=== PATIENT | male | born 1980 | race African-American/Black ===

== ENCOUNTER 2018-08-06 08:12 | Emergency (ER) | payer OTHER ==
[~2018-08-06] VITALS: Ht 170.2 cm; Wt 72.6 kg
[~2018-08-06 08:12] MED LIST: ATIVAN1 MG PO; CARAFATE 1 GM TA1 G1 PO; CARAFATE 11 GM/10 M1 PO; NOHOMEMEDICATIONS; NORCO 5-325 TA1 EACH PO; PHENERGAN 25 MG25 M1 PO; PRILOSEC 20 MG20 MG PO; PROTONIX40 MG PO; REGLAN 10 MG TA10 M1 PO; ZANTAC 150MG T150 M1 PO; ZOFRAN 4 MG ORAL4 MG PO; ZOFRAN ODT4 MG PO; ZOFRAN4 MG PO
[2018-08-06 08:34] LABS: ABSOLUTE NEUTROPHILS 9.9 thou/uL (1.4-8.2); BASOPHILS 0.2 % (0.0-2.0); HEMATOCRIT 45.1 % (42.0-52.0); HEMOGLOBIN 15.3 gm/dL (14.0-18.0); LYMPHOCYTES 5.2 % (24.0-44.0); MCH 28.7 pg (26.0-34.0); MCHC 33.9 g/dL (28.0-37.0); MCV 84.7 fL (80.0-100.0); MONOCYTES 4.8 % (1.0-8.0); PLATELET COUNT 198 thou/uL (150-400); POLYS 89.8 % (36.0-66.0); RBC 5.33 mil/uL (4.50-6.00); RDW 13.9 % (10.5-14.5)
[2018-08-06 08:45] LABS: CALCIUM 10.1 mg/dL (8.5-10.1); CREATININE 1.3 mg/dL (0.7-1.3); POTASSIUM 3.4 mmol/L (3.5-5.1)
[2018-08-06 08:51] LABS: ALBUMIN 4.2 g/dL (3.4-5.0); TOTAL BILIRUBIN 1.3 mg/dL (<0.1-1.0); TOTAL PROTEIN 8.7 g/dL (6.4-8.2)
[2018-08-06] MEDS ORDERED: ZOFRAN ODT8 MG PO (09:38)
[2018-08-06] MEDS ORDERED: PROMS25 WY RECTAL (09:38)
[2018-08-06 10:40] VITALS: BP 158/89
== END 2018-08-06 10:54 | disposition home or self-care (01) ==
LOC: ER 08:12
PROVIDERS: Emergency Medicine
DX: R11.2 Nausea with vomiting, unspecified (principal); F12.99 Cannabis use, unspecified with unspecified cannabis-induced disorder; F17.210 Nicotine dependence, cigarettes, uncomplicated

== ENCOUNTER 2018-08-07 17:16 | Inpatient (IN) | payer OTHER ==
[~2018-08-07] VITALS: Ht 170.2 cm; Wt 158.8 kg
--- NOTE | ~2018-08-07 | EKG ---
[address] [address] ELECTROCARDIOGRAM REPORT Name: SELINA DICKINSONRUBEN Room #: 424-P ADM IN M.R.#: [id number] Admission: 08/07/18 Attend Phys: Ronnie Jauregui MD Discharge: Date of : 82 Report #: [id number] THIS REPORT FOR: //name// [facility] ED Test Date: 2018-08-07 Test Time: 17:44:41 Pat Name: HAILE DICKINSON Department: Room: [facility] Gender: M [facility] Administrator: : 1980 Requested By: Sarita Strong Order Number: [id number] MD: Félix Rascon Measurements Intervals [place] Rate: 74 P: 63 [place]: 143 QRS: 67 QRSD: 103 T: 62 QT: 393 QTc: 436 Interpretive Statements Sinus arrhythmia ST elev, probable normal early repol pattern Compared to ECG 06/20/2018 18:23:00 No significant change was found Electronically Signed On 08-08-2018 8:14:11 CDT by Félix Rascon [email or web address] <ELECTRONICALLY SIGNED> By: Félix Rascon MD, [facility] 08/08/18 0814 43 43 Félix Rascon MD, [facility] /EPI
--- NOTE | ~2018-08-07 | 2DMMODE ---
[facility] [address] [place] [address] 2 D/M-MODE ECHOCARDIOGRAM Name: SELINA DICKINSONRUBEN Room #: 424-P ADM IN .R.#: [id number] Admission: 08/07/18 Attend Phys: Ronnie Jauregui MD Discharge: Date of : 82 Date of Service: 08/08/18 1420 Report #: [id number] THIS REPORT FOR: //name// APPROVED REPORT Study performed: 08/08/2018 13:17:58 EXAM: Comprehensive 2D, Doppler, and color-flow Echocardiogram Patient Location: Echo lab Room #: [facility] Status: routine BSA: 1.84 HR: 76 bpm BP: 156/90 mmHg Rhythm: NSR Other Information Study Quality: Good Indications Chest Pain Hypertension/HDD 2D Dimensions RVDd: 35.60 mm IVSd: 11.79 (7-11mm) LVOT Diam: 21.00 (18-24mm) LVDd: 46.31 mm PWd: 12.06 (7-11mm) Ascending Ao: 26.36 (22-36mm) LVDs: 32.16 (25-40mm) Aortic Root: 29.30 mm IVC: 16.00 mm Volumes Left Atrial Volume (Systole) Single Plane 4CH: 52.49 mL Single Plane 2CH: 23.05 mL LA ESV Index: 23.00 mL/m2 Aortic Valve AoV Peak Landen.: 1.39 m/s AO Peak Gr.: 7.69 mmHg LVOT Max P.02 mmHg LVOT Max V: 1.12 m/s [place] Vmax: 2.80 cm2 Mitral Valve E/A Ratio: 1.5 MV Decel. Time: 295.67 ms [facility] [place] [address] [place] [address] 2 D/M-MODE ECHOCARDIOGRAM Name: ALOKSELINARUBEN Room #: [facility]#: [id number] Admission: 08/07/18 Attend Phys: Ronnie Jauregui MD Discharge: Date of : 82 Date of Service: 08/08/18 1420 Report #: [id number] MV E Max Landen.: 0.69 m/s MV A Landen.: 0.45 m/s MV PHT: 85.75 ms IVRT: 87.66 ms Pulmonary Valve PV Peak Landen.: 1.30 m/s PV Peak Gr.: 6.80 mmHg Pulmonary Vein P Vein S: 0.75 m/s P Vein A: 0.23 m/s P Vein D: 0.48 m/s P Vein A Dur.: 87.7 msec P Vein S/D Ratio: 1.56 Tricuspid Valve TR Peak Landen.: 2.48 m/s TR Peak Gr.: 24.55 mmHg PA Pressure: 29.00 mmHg Left Ventricle The left ventricle is normal size. There is normal LV segmental wall motion. There is normal left ventricular wall thickness. Left ventricular systolic function is normal. The left ventricular ejection fraction is within the normal range. LVEF is 55-60%. The left ventricular diastolic function is normal. Right Ventricle The right ventricle is normal size. The right ventricular systolic function is normal. Atria The left atrium size is normal. The right atrium size is normal. Aortic Valve The aortic valve is normal in structure. No aortic regurgitation is present. There is no aortic valvular stenosis. Mitral Valve The mitral valve is normal in structure. There is no mitral valve regurgitation noted. No evidence of mitral valve stenosis. Tricuspid Valve The tricuspid valve is normal in structure. There is trace tricuspid regurgitation. Estimated PAP 29 mmHg. There is no pulmonary hypertension. [address] [address] 2 D/M-MODE ECHOCARDIOGRAM Name: AMARA DICKINSONGus Room #: 424-P [facility] IN .R.#: [id number] Admission: 08/07/18 Attend Phys: Ronnie Jauregui MD Discharge: Date of : 82 Date of Service: 08/08/18 1420 Report #: [id number] Pulmonic Valve The pulmonary valve is normal in structure. Trace pulmonic regurgitation. Great Vessels The aortic root is normal in size. IVC is normal in size and collapses >50% with inspiration. Pericardium There is no pericardial effusion. <Conclusion> The left ventricle is normal size. Left ventricular systolic function is normal. The left ventricular diastolic function is normal. The right ventricle is normal size. The left atrium size is normal. The aortic valve is normal in structure. There is no mitral valve regurgitation noted. There is trace tricuspid regurgitation. Estimated PAP 29 mmHg. <ELECTRONICALLY SIGNED> By: Nuno Chang MD 08/08/18 1420 1420 142 Nuno Chang MD /INF
--- NOTE | ~2018-08-07 | PATH ---
[facility] [address] [address] PATHOLOGY RPT PROCEDURE Name: RENETTA DICKINSON Room #: 424-P DIS IN M.R.#: [id number] Admission: 08/07/18 Date of : 82 Discharge: 08/11/18 Report #: [id number] Path Case #: [id number] [facility] Accession Number: [id number] . 01 Material submitted: . PART A: BX DUODENUM R/O SPRUE PART B: GASTRIC BX R/O H. PYLORI PART C: BX ESOPHAGITIS R/O CMV,HERPES,JOSE ALFREDO . 01 Clinical history: . Pre-OP DX: Nausea, vomiting, abdominal pain Post-OP DX: Esophagitis . 02 Diagnosis: A. Duodenum "biopsy duodenum": - No obvious diagnostic changes. - There is no evidence of acute cryptitis, granulomas, adenomatous change, sprue-like changes or malignancy. . B. Gastric "gastric biopsy": - Mild chronic reactive gastropathy. - The immunoperoxidase stains for Helicobacter pylori is negative. . C. Esophagus "biopsy esophagitis": - Acute esophageal ulcer with necrotic acute inflammatory exudate. - Squamous and glandular mucosa are not present for evaluation. - No obvious goblet cell metaplasia, dysplasia or malignancy. - As requested CMV, herpes and jose alfredo will be don an additional report will follow. (SHA:[facility] 08/12/2018) QTP/08/12/2018 . 02 Electronically signed: . Nathaniel Bhatt MD, Pathologist NPI- [id number] . 01 Gross description: . A. Received in formalin labeled "Renetta Dickinson, BX duodenum, rule out sprue," are 2 segments of rios soft tissue measuring 0.9 x 0.3 x 0.3 cm in aggregate dimensions and ranging from 0.4 to 0.5 cm in maximum dimension. The specimen is submitted entirely in cassette A1. . B. Received in formalin labeled "Renetta Dickinson, BX gastric, rule out H. pylori," are 3 segments of rios soft tissue measuring 1.2 x 0.8 x 0.2 cm in aggregate dimensions and ranging from 0.4 to 0.6 cm in maximum dimension. The specimen is submitted entirely in cassette B1. . [address] [address] PATHOLOGY RPT PROCEDURE Name: RENETTA DICKINSON Room #: 424-P DIS IN M.R.#: [id number] Admission: 08/07/18 Date of : 82 Discharge: 08/11/18 Report #: [id number] Path Case #: [id number] C. Received in formalin labeled "Jena Dickinsonaruna, BX esophagitis," are 3 segments of rios soft tissue measuring 0.6 x 0.4 x 0.1 cm in aggregate dimensions and ranging from 0.2 to 0.3 cm in maximum dimension. The specimen is submitted entirely in cassette C1. (TSD; 08/09/2018) TOB/TOB . 02 Pathologist provided ICD-10: K31.9, K20.9 . 02 CPT . 768129, 936291, 377197, L26367 Specimen Comment: A courtesy copy of this report has been sent to Specimen Comment: [phone], . Specimen Comment: Report sent to / DR LUZ Performed at: [address], [place] [id number] MD Shay Hardwick MD Phone: [phone] Performed at: [address] [id number] MD Sharyn Ball MD Phone: [phone]
--- NOTE | ~2018-08-07 | P ---
[facility] [place] [address] [place] [address] PROCEDURE REPORT Name: HAILE DICKINSON Room #: 424-P [facility] IN M.R.#: [id number] Admission: 08/07/18 Attend Phys: Ronnie Jauregui MD Discharge: Date of : 82 Report #: [id number] THIS REPORT FOR: //name// CC: CAM physician/PCP Ronnie Jauregui MD DATE OF SERVICE: 08/09/2018 PROCEDURE PERFORMED: Upper endoscopy with biopsies. HISTORY OF PRESENT ILLNESS: The patient is a 38-year-old male who was admitted for recurrent nausea, vomiting and abdominal pain. He does complain of belching, unsure if he has had a previous upper endoscopy in the past. Abdominal ultrasound shows gallbladder sludge, but no evidence of cholelithiasis, no ductal dilation. He denies any NSAID use. He denies any dysphagia or odynophagia. DESCRIPTION OF PROCEDURE: The risks and benefits of the procedure were explained to the patient, those risks including but not limited to bleeding, perforation and the risk of sedation. He understood these risks and gave informed consent. Sedation was given using propofol per anesthesia. Next, using a standard Olympus upper endoscope, the scope was placed in the patient's mouth and advanced under direct vision through the esophagus, stomach and into the second portion of the duodenum. The upper esophagus was normal. In the mid and distal esophagus, severe grade D ulcerative esophagitis was noted. Biopsies were obtained to rule out CMV and herpes as well as Nicolasa. Upon entering the stomach, a large amount of fluid was noted. This may be suggestive for gastroparesis. This was aspirated away. There was a mild gastritis, several erosions were also noted within the gastric antrum. Biopsies obtained to rule out H. pylori. The pylorus was normal and patent. The duodenal bulb, first and second portion were all normal. Biopsies were obtained to rule out the possibility of celiac sprue. The scope was then withdrawn and the procedure terminated. The patient tolerated the procedure well. IMPRESSION: 1. Severe grade D erosive esophagitis as described above. 2. Liquid within the stomach suggesting possible gastroparesis. 3. Gastritis with gastric erosions. RECOMMENDATIONS: 1. Await biopsy results. 2. Would recommend discontinuing Pepcid. Starting Protonix drip and adding liquid Carafate at this time. May need to consider promotility agent such as Reglan and gastric emptying study in the near future. [address] [address] PROCEDURE REPORT Name: HAILE DICKINSON Room #: 424-P [facility] IN ..#: [id number] Admission: 08/07/18 Attend Phys: Ronnie Jauregui MD Discharge: Date of : 82 Report #: [id number] Thank you for allowing me to participate in his care. By: 1049 [id number] Curtis Mullen MD /nt
--- NOTE | ~2018-08-07 | EKG ---
[address] [address] ELECTROCARDIOGRAM REPORT Name: SELINA DICKINSONRUBEN Room #: 424-P ADM IN M.R.#: [id number] Admission: 08/07/18 Attend Phys: Ronnie Jauregui MD Discharge: Date of : 82 Report #: [id number] THIS REPORT FOR: //name// [facility] Test Date: 2018-08-08 Test Time: 11:42:34 Pat Name: HAILE DICKINSON Department: Room: 424 P Gender: M Veneer Taper: Mahesh PEGUERO : 1980 Requested By: Ronnie Jauregui Order Number: [id number] MD: Félix Rascon Measurements Intervals [place] Rate: 83 P: 66 [place]: 141 QRS: 48 QRSD: 103 T: 53 QT: 380 QTc: 447 Interpretive Statements Sinus rhythm No significant abnormality Compared to ECG 08/07/2018 17:44:41 Sinus arrhythmia no longer present Electronically Signed On 08-09-2018 8:20:33 CDT by Félix Rascon [email or web address] <ELECTRONICALLY SIGNED> By: Félix Rascon MD, [facility] 08/09/18 0820 1142 114 Félix Rascon MD, FAC /EPI
[2018-08-07 17:16] VITALS: BP 156/106
[~2018-08-07 17:16] MED LIST changes: +PROMS25 WY RECTAL; +ZOFRAN ODT8 MG PO
[2018-08-07 18:13] LABS: ABSOLUTE NEUTROPHILS 11.5 thou/uL (1.4-8.2); BASOPHILS 0.2 % (0.0-2.0); EOSINOPHILS 0.1 % (0.0-3.0); HEMATOCRIT 46.4 % (42.0-52.0); HEMOGLOBIN 15.6 gm/dL (14.0-18.0); LYMPHOCYTES 7.6 % (24.0-44.0); MCH 28.5 pg (26.0-34.0); MCHC 33.7 g/dL (28.0-37.0); MCV 84.6 fL (80.0-100.0); MONOCYTES 9.1 % (1.0-8.0); PLATELET COUNT 204 thou/uL (150-400); RBC 5.48 mil/uL (4.50-6.00); WBC 13.8 thou/uL (4.0-11.0)
[2018-08-07 18:23] LABS: CALCIUM 9.7 mg/dL (8.5-10.1); CREATININE 1.1 mg/dL (0.7-1.3); POTASSIUM 3.4 mmol/L (3.5-5.1)
[2018-08-07 18:25] LABS: APTT 26.6 Seconds (24.5-32.8)
[2018-08-07 18:29] LABS: ALBUMIN 4.1 g/dL (3.4-5.0); TOTAL BILIRUBIN 0.8 mg/dL (<0.1-1.0); TOTAL PROTEIN 8.9 g/dL (6.4-8.2)
[2018-08-07 20:53] VITALS: BP 145/93
[2018-08-07 21:04] VITALS: BP 155/93
[2018-08-07 21:15] VITALS: BP 162/90
[2018-08-08 01:26] LABS: URINE BILIRUBIN NEGATIVE (Negative); URINE BLOOD NEGATIVE (Negative); URINE CLARITY CLEAR; URINE COLOR YELLOW; URINE GLUCOSE-RANDOM* NEGATIVE (Negative); URINE KETONES 1+ (Negative); URINE LEUKOCYTES NEGATIVE (Negative); URINE NITRITE NEGATIVE (Negative); URINE PROTEIN (DIPSTICK) NEGATIVE (Negative); URINE UROBILINOGEN 0.2 E.U./dl (0.2-1.0)
[2018-08-08 02:01] LABS: AMP/METHAMP Negative (Negative); BARBITURATES Negative (Negative); BENZODIAZEPINES Negative (Negative); COCAINE Negative (Negative); METHADONE Negative (Negative); OPIATES Negative (Negative); PCP Negative (Negative)
[2018-08-08 03:35] VITALS: BP 160/95
[2018-08-08 06:08] LABS: HEMATOCRIT 45.7 % (42.0-52.0); HEMOGLOBIN 14.8 gm/dL (14.0-18.0); MCH 27.8 pg (26.0-34.0); MCHC 32.3 g/dL (28.0-37.0); MCV 85.9 fL (80.0-100.0); RBC 5.32 mil/uL (4.50-6.00); WBC 13.3 thou/uL (4.0-11.0)
[2018-08-08 06:10] VITALS: BP 164/92
[2018-08-08 06:21] LABS: CALCIUM 8.6 mg/dL (8.5-10.1); MAGNESIUM 2.4 mg/dL (1.8-2.4); POTASSIUM 3.7 mmol/L (3.5-5.1)
[2018-08-08 07:30] VITALS: BP 156/90
[2018-08-08 10:57] LABS: LIPASE 60 U/L (73-393)
[2018-08-08 11:04] LABS: TROPONIN-I <0.06 ng/mL (<0.06)
[2018-08-08 11:06] VITALS: BP 156/98
[2018-08-08 11:08] LABS: AMYLASE 31 U/L (25-115)
[2018-08-08 16:05] VITALS: BP 150/102
[2018-08-08 19:20] VITALS: BP 159/93
[2018-08-09 04:24] VITALS: BP 161/100
[2018-08-09 06:04] LABS: HEMATOCRIT 43.5 % (42.0-52.0); HEMOGLOBIN 14.7 gm/dL (14.0-18.0); MCH 28.7 pg (26.0-34.0); MCHC 33.9 g/dL (28.0-37.0); MCV 84.7 fL (80.0-100.0); PLATELET COUNT 178 thou/uL (150-400); RBC 5.13 mil/uL (4.50-6.00); RDW 13.5 % (10.5-14.5); WBC 11.3 thou/uL (4.0-11.0)
[2018-08-09 06:14] LABS: CALCIUM 8.7 mg/dL (8.5-10.1); POTASSIUM 3.6 mmol/L (3.5-5.1)
[2018-08-09 08:00] VITALS: BP 157/94
[2018-08-09 08:35] LABS: ABSOLUTE NEUTROPHILS 7.7 thou/uL (1.4-8.2)
[2018-08-09 20:09] VITALS: BP 143/90
[2018-08-10 05:53] LABS: HEMATOCRIT 43.6 % (42.0-52.0); HEMOGLOBIN 14.9 gm/dL (14.0-18.0); MCHC 34.1 g/dL (28.0-37.0); PLATELET COUNT 193 thou/uL (150-400); RBC 5.12 mil/uL (4.50-6.00); RDW 13.9 % (10.5-14.5); WBC 7.2 thou/uL (4.0-11.0)
[2018-08-10 05:59] LABS: CALCIUM 9.3 mg/dL (8.5-10.1); CREATININE 0.9 mg/dL (0.7-1.3); POTASSIUM 3.9 mmol/L (3.5-5.1)
[2018-08-10 09:03] LABS: ABSOLUTE NEUTROPHILS 3.9 thou/uL (1.4-8.2)
[2018-08-10 09:13] VITALS: BP 129/89
[2018-08-10 17:43] VITALS: BP 168/76
[2018-08-10 20:00] VITALS: BP 167/98
[2018-08-10 22:00] VITALS: BP 137/81
[2018-08-11 03:05] VITALS: BP 138/89
[2018-08-11 06:50] LABS: HEMATOCRIT 44.8 % (42.0-52.0); HEMOGLOBIN 15.1 gm/dL (14.0-18.0); MCH 28.6 pg (26.0-34.0); MCHC 33.7 g/dL (28.0-37.0); MCV 84.9 fL (80.0-100.0); PLATELET COUNT 206 thou/uL (150-400); RBC 5.28 mil/uL (4.50-6.00); RDW 13.6 % (10.5-14.5); WBC 7.8 thou/uL (4.0-11.0)
[2018-08-11 06:58] LABS: CALCIUM 9.3 mg/dL (8.5-10.1); CREATININE 1.1 mg/dL (0.7-1.3); POTASSIUM 3.5 mmol/L (3.5-5.1)
[2018-08-11 08:56] LABS: ABSOLUTE NEUTROPHILS 4.8 thou/uL (1.4-8.2)
[2018-08-11 08:57] LABS: ANISOCYTOSIS SLIGHT
[2018-08-11] MEDS ORDERED: MELATONIN5 M1 PO (14:35)
[2018-08-11] MEDS ORDERED: PROTONIX40 M1 PO (14:35)
[2018-08-11] MEDS ORDERED: REGLAN 10 MG TA10 MG PO (14:35)
[2018-08-11 15:19] VITALS: BP 138/89
[2018-08-11] MEDS ORDERED: NICOTINE TRANSD21 M1 TRANSDERM (15:48)
== END 2018-08-11 15:57 | disposition home or self-care (01) | DRG 382 ==
LOC: ER 17:16 → 4E 20:15 → EROBS 20:15 → 4E 21:04
PROVIDERS: Hospitalist; Nurse Practitioner Acute Care; Physician Assistant
PROC: 0DB98ZX Excision of Duodenum, Via Natural or Artificial Opening Endoscopic, Diagnostic (ICD-10-PCS; principal; 2018-08-09)
PROC: 0DB58ZX Excision of Esophagus, Via Natural or Artificial Opening Endoscopic, Diagnostic (ICD-10-PCS; principal; 2018-08-09)
PROC: 0DB68ZX Excision of Stomach, Via Natural or Artificial Opening Endoscopic, Diagnostic (ICD-10-PCS; principal; 2018-08-09)
DX: K22.10 Ulcer of esophagus without bleeding (principal); K31.89 Other diseases of stomach and duodenum; K29.00 Acute gastritis without bleeding; F12.90 Cannabis use, unspecified, uncomplicated; E86.0 Dehydration; D72.829 Elevated white blood cell count, unspecified; F17.210 Nicotine dependence, cigarettes, uncomplicated; R11.10 Vomiting, unspecified; E87.6 Hypokalemia; K59.00 Constipation, unspecified; Z79.899 Other long term (current) drug therapy
CPT/HCPCS: 10084; 62110; 62900; 70005

== ENCOUNTER 2018-08-22 23:50 | Emergency (ER) | payer OTHER ==
[~2018-08-22] VITALS: Ht 172.7 cm; Wt 74.8 kg
--- NOTE | ~2018-08-22 | EKG ---
[address] [place] [address] ELECTROCARDIOGRAM REPORT Name: DICKINSONHAILE Room #: DEP Inocencio#: [id number] Admission: 08/22/18 Attend Phys: Discharge: 08/23/18 Date of : 82 Report #: [id number] THIS REPORT FOR: //name// [facility] ED Test Date: 2018-08-23 Test Time: 01:34:53 Pat Name: HAILE DICKINSON Department: Room: Gender: Car Checker: [place] [address] : 1980 Requested By: Nadia Hernandez Order Number: [id number] MD: Félix Rascon Measurements Intervals [place] Rate: 72 P: 5 [place]: 154 QRS: 66 QRSD: 107 T: 38 QT: 399 QTc: 437 Interpretive Statements Sinus rhythm No significant abnormality Compared to ECG 08/08/2018 11:42:34 No significant changes Electronically Signed On 08-23-2018 8:59:47 CDT by Félix Rascon [email or web address] <ELECTRONICALLY SIGNED> By: Félix Rascon MD, [facility] 08/23/18 0859 0134 0134 Félix Rascon MD, FACC /EPI
[~2018-08-22 23:50] MED LIST changes: +MELATONIN5 M1 PO; +NICOTINE TRANSD21 M1 TRANSDERM; +PROTONIX40 M1 PO; +REGLAN 10 MG TA10 MG PO
[2018-08-23 01:17] LABS: ABSOLUTE NEUTROPHILS 10.8 thou/uL (1.4-8.2); BASOPHILS 0.6 % (0.0-2.0); EOSINOPHILS 0.1 % (0.0-3.0); HEMATOCRIT 43.8 % (42.0-52.0); HEMOGLOBIN 14.5 gm/dL (14.0-18.0); MCH 28.2 pg (26.0-34.0); MCV 85.3 fL (80.0-100.0); PLATELET COUNT 269 thou/uL (150-400); POLYS 87.3 % (36.0-66.0); RBC 5.14 mil/uL (4.50-6.00); RDW 14.4 % (10.5-14.5); WBC 12.4 thou/uL (4.0-11.0)
[2018-08-23 01:32] LABS: CREATININE 1.1 mg/dL (0.7-1.3); POTASSIUM 3.6 mmol/L (3.5-5.1)
[2018-08-23 01:38] LABS: ALBUMIN 4.1 g/dL (3.4-5.0); DIRECT BILIRUBIN 0.1 mg/dL (<0.1-0.3); TOTAL BILIRUBIN 0.5 mg/dL (<0.1-1.0)
[2018-08-23 02:59] LABS: URINE BILIRUBIN NEGATIVE (Negative); URINE BLOOD NEGATIVE (Negative); URINE CLARITY CLEAR; URINE COLOR YELLOW; URINE GLUCOSE-RANDOM* NEGATIVE (Negative); URINE KETONES 1+ (Negative); URINE LEUKOCYTES-REFLEX NEGATIVE (Negative); URINE NITRITE-REFLEX NEGATIVE (Negative); URINE PROTEIN (DIPSTICK) NEGATIVE (Negative); URINE SPECIFIC GRAVITY 1.015 (1.005-1.035); URINE UROBILINOGEN 0.2 E.U./dl (0.2-1.0)
[2018-08-23 03:07] LABS: AMP/METHAMP Negative (Negative); BARBITURATES Negative (Negative); BENZODIAZEPINES Negative (Negative); COCAINE Negative (Negative); METHADONE Negative (Negative); OPIATES Negative (Negative); PCP Negative (Negative)
[2018-08-23 03:08] LABS: SSA (PROTEIN CONFIRMATORY) NEGATIVE (Negative)
[2018-08-23 03:19] VITALS: BP 152/86
== END 2018-08-23 03:20 | disposition home or self-care (01) ==
LOC: ER 23:50
PROVIDERS: Emergency Medicine
DX: R11.10 Vomiting, unspecified (principal); F12.10 Cannabis abuse, uncomplicated; K20.9 Esophagitis, unspecified; F17.210 Nicotine dependence, cigarettes, uncomplicated

== ENCOUNTER 2018-10-08 14:46 | Emergency (ER) | payer OTHER ==
[~2018-10-08] VITALS: Ht 170.2 cm; Wt 72.6 kg
[2018-10-08 16:09] LABS: ABSOLUTE NEUTROPHILS 7.6 thou/uL (1.4-8.2); BASOPHILS 0.6 % (0.0-2.0); EOSINOPHILS 0.1 % (0.0-3.0); HEMATOCRIT 46.8 % (42.0-52.0); HEMOGLOBIN 15.7 gm/dL (14.0-18.0); LYMPHOCYTES 7.9 % (24.0-44.0); MCH 28.7 pg (26.0-34.0); MCHC 33.5 g/dL (28.0-37.0); MCV 85.7 fL (80.0-100.0); MONOCYTES 3.9 % (1.0-8.0); PLATELET COUNT 227 thou/uL (150-400); POLYS 87.5 % (36.0-66.0); RBC 5.46 mil/uL (4.50-6.00); RDW 14.2 % (10.5-14.5); WBC 8.6 thou/uL (4.0-11.0)
[2018-10-08 16:17] LABS: CALCIUM 10.1 mg/dL (8.5-10.1); CREATININE 1.3 mg/dL (0.7-1.3); POTASSIUM 4.4 mmol/L (3.5-5.1)
[2018-10-08 16:23] LABS: ALBUMIN 4.4 g/dL (3.4-5.0); TOTAL BILIRUBIN 0.9 mg/dL (<0.1-1.0); TOTAL PROTEIN 8.9 g/dL (6.4-8.2)
[2018-10-08] MEDS ORDERED: PROMS25 WY RECTAL (17:52)
[2018-10-08 20:38] VITALS: BP 137/95
== END 2018-10-08 20:39 | disposition home or self-care (01) ==
LOC: ER 14:46
PROVIDERS: Physician Assistant
DX: G43.A0 Cyclical vomiting, in migraine, not intractable (principal); R10.9 Unspecified abdominal pain; F12.10 Cannabis abuse, uncomplicated

== ENCOUNTER 2018-10-11 13:20 | Emergency (ER) | payer OTHER ==
[~2018-10-11] VITALS: Ht 167.6 cm; Wt 70.3 kg
[2018-10-11 16:22] LABS: HEMATOCRIT 48.7 % (42.0-52.0); HEMOGLOBIN 16.5 gm/dL (14.0-18.0); MCH 28.7 pg (26.0-34.0); MCHC 33.9 g/dL (28.0-37.0); MCV 84.6 fL (80.0-100.0); RBC 5.76 mil/uL (4.50-6.00); RDW 14.2 % (10.5-14.5); WBC 12.2 thou/uL (4.0-11.0)
[2018-10-11 16:29] LABS: CALCIUM 9.2 mg/dL (8.5-10.1); CREATININE 0.9 mg/dL (0.7-1.3); POTASSIUM 3.5 mmol/L (3.5-5.1)
[2018-10-11 16:35] LABS: ALBUMIN 3.7 g/dL (3.4-5.0)
[2018-10-11 16:45] VITALS: BP 159/97
[2018-10-11 16:49] LABS: TOTAL BILIRUBIN 0.9 mg/dL (<0.1-1.0); TOTAL PROTEIN 8.2 g/dL (6.4-8.2)
[2018-10-11 16:56] LABS: URINE BILIRUBIN NEGATIVE (Negative); URINE BLOOD TRACE (Negative); URINE CLARITY CLEAR; URINE COLOR YELLOW; URINE GLUCOSE-RANDOM* NEGATIVE (Negative); URINE KETONES NEGATIVE (Negative); URINE NITRITE-REFLEX NEGATIVE (Negative); URINE PROTEIN (DIPSTICK) NEGATIVE (Negative)
[2018-10-11 17:01] LABS: URINE LEUKOCYTES-REFLEX TRACE (Negative)
[2018-10-11] MEDS ORDERED: BACTRIM DS TAB1 EACH PO (17:15)
[2018-10-11 17:17] LABS: ABSOLUTE NEUTROPHILS 7.8 thou/uL (1.4-8.2); ANISOCYTOSIS 1+; ATYPICAL LYMPHS 1 %; LARGE PLATELETS RARE; PLATELET COUNT 187 thou/uL (150-400)
[2018-10-11 17:27] LABS: BACTERIA-REFLEX 1-9 Few /HPF (None Seen); CASTS None Seen /LPF (None Seen); CRYSTALS None Seen /LPF (None Seen); SQUAMOUS 0-3 Few /LPF (0-3); URINE RBC 0-2 Rare /HPF (0-2); URINE WBC-REFLEX 0-5 Rare /HPF (0-5)
== END 2018-10-11 17:15 | disposition home or self-care (01) ==
LOC: ER 13:20
PROVIDERS: Physician Assistant
DX: N39.0 Urinary tract infection, site not specified (principal); R53.83 Other fatigue; F17.210 Nicotine dependence, cigarettes, uncomplicated

== ENCOUNTER 2018-10-24 08:10 | Emergency (ER) | payer OTHER ==
[~2018-10-24] VITALS: Ht 170.2 cm; Wt 72.6 kg
[~2018-10-24 08:10] MED LIST changes: +BACTRIM DS TAB1 EACH PO
[2018-10-24 08:51] LABS: HEMATOCRIT 43.2 % (42.0-52.0); HEMOGLOBIN 14.1 gm/dL (14.0-18.0); MCH 28.3 pg (26.0-34.0); MCHC 32.6 g/dL (28.0-37.0); MCV 86.6 fL (80.0-100.0); RBC 4.98 mil/uL (4.50-6.00); RDW 15.3 % (10.5-14.5); WBC 8.6 thou/uL (4.0-11.0)
[2018-10-24 08:54] LABS: CALCIUM 9.4 mg/dL (8.5-10.1); CREATININE 1.3 mg/dL (0.7-1.3); POTASSIUM 3.7 mmol/L (3.5-5.1)
[2018-10-24 09:00] LABS: TOTAL BILIRUBIN 0.5 mg/dL (<0.1-1.0); TOTAL PROTEIN 8.3 g/dL (6.4-8.2)
[2018-10-24 09:40] LABS: URINE CLARITY CLEAR; URINE COLOR YELLOW; URINE GLUCOSE-RANDOM* NEGATIVE (Negative); URINE PROTEIN (DIPSTICK) 1+ (Negative); URINE SPECIFIC GRAVITY 1.015 (1.005-1.035)
[2018-10-24 09:41] LABS: URINE BILIRUBIN NEGATIVE (Negative); URINE BLOOD NEGATIVE (Negative); URINE KETONES NEGATIVE (Negative); URINE LEUKOCYTES-REFLEX NEGATIVE (Negative); URINE NITRITE-REFLEX NEGATIVE (Negative); URINE UROBILINOGEN 0.2 E.U./dl (0.2-1.0)
[2018-10-24 09:46] LABS: AMP/METHAMP Negative (Negative); BARBITURATES Negative (Negative); BENZODIAZEPINES Negative (Negative); COCAINE Negative (Negative); METHADONE Negative (Negative); OPIATES Negative (Negative); PCP Negative (Negative)
[2018-10-24 10:15] LABS: CASTS None Seen /LPF (None Seen); MUCUS 0-3 Light strn/LPF (None Seen); SQUAMOUS 0-3 Few /LPF (0-3)
[2018-10-24 10:16] LABS: BACTERIA-REFLEX None Seen /HPF (None Seen); CRYSTALS None Seen /LPF (None Seen); URINE RBC None Seen /HPF (0-2); URINE WBC-REFLEX 0-5 Rare /HPF (0-5)
[2018-10-24] MEDS ORDERED: REGLAN 10 MG TA10 MG PO (12:24)
[2018-10-24 12:51] VITALS: BP 159/88
== END 2018-10-24 13:03 | disposition home or self-care (01) ==
LOC: ER 08:10
PROVIDERS: Emergency Medicine
DX: G43.A0 Cyclical vomiting, in migraine, not intractable (principal); F12.10 Cannabis abuse, uncomplicated; F17.210 Nicotine dependence, cigarettes, uncomplicated

== ENCOUNTER 2018-11-15 07:57 | Emergency (ER) | payer OTHER ==
[~2018-11-15] VITALS: Ht 182.9 cm; Wt 81.7 kg
[2018-11-15 08:51] LABS: ABSOLUTE NEUTROPHILS 7.1 thou/uL (1.4-8.2); BASOPHILS 0.4 % (0.0-2.0); EOSINOPHILS 0.3 % (0.0-3.0); HEMOGLOBIN 15.2 gm/dL (14.0-18.0); MCH 28.2 pg (26.0-34.0); MCV 85.3 fL (80.0-100.0); PLATELET COUNT 223 thou/uL (150-400); POLYS 78.3 % (36.0-66.0); RBC 5.39 mil/uL (4.50-6.00); RDW 14.3 % (10.5-14.5); WBC 9.1 thou/uL (4.0-11.0)
[2018-11-15 08:59] LABS: CALCIUM 9.7 mg/dL (8.5-10.1); CREATININE 1.2 mg/dL (0.7-1.3)
[2018-11-15 09:05] LABS: ALBUMIN 4.3 g/dL (3.4-5.0); TOTAL BILIRUBIN 0.9 mg/dL (<0.1-1.0); TOTAL PROTEIN 8.7 g/dL (6.4-8.2)
[2018-11-15] MEDS ORDERED: REGLAN 10 MG TA10 MG PO (09:59)
[2018-11-15 10:27] VITALS: BP 156/92
== END 2018-11-15 10:28 | disposition home or self-care (01) ==
LOC: ER 07:57
PROVIDERS: Emergency Medicine
DX: R11.2 Nausea with vomiting, unspecified (principal); F17.210 Nicotine dependence, cigarettes, uncomplicated